=== PATIENT | male | born 1995 | race Caucasian/White ===

== ENCOUNTER 2017-11-04 23:12 | Emergency (ER) | payer OTHER ==
[~2017-11-04] VITALS: Ht 172.7 cm; Wt 93.0 kg
[~2017-11-04 23:12] MED LIST: METH36 PO; TYLE3 PO
[2017-11-04 23:14] VITALS: BP 125/83; PULSE 62; RESP 16; TEMP 97.6; O2SAT 98
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
== END 2017-11-05 01:15 | disposition home or self-care (01) ==
LOC: NEPD 23:12
DX: Z77.21 Contact with and (suspected) exposure to potentially hazardous body fluids (principal); F90.9 Attention-deficit hyperactivity disorder, unspecified type; Z79.899 Other long term (current) drug therapy
CPT/HCPCS: 99281